=== PATIENT | male | born 1975 | race Native Hawaiian/Other Pacific Islander ===

== ENCOUNTER 2020-10-25 07:34 | Emergency (ER) | payer BC, OTHER ==
[~2020-10-25] VITALS: Ht 180.3 cm; Wt 104.3 kg
[2020-10-25 07:34] VITALS: TEMP 98.9
[2020-10-25 08:09] LABS: PLATELET COUNT 116 K/uL (142-355)
[2020-10-25 08:14] LABS: POTASSIUM 3.7 mmol/L (3.6-5.2); SODIUM 133 mmol/L (136-145)
[2020-10-25 08:27] LABS: PARTIAL THROMBOPLASTIN TIME 27.8 SECONDS (24.5-33.6)
[2020-10-25 10:30] VITALS: BP 120/82
== END 2020-10-25 10:41 | disposition home or self-care (01) ==
LOC: ED 07:34
PROVIDERS: Hospitalist
DX: U07.1 COVID-19 (principal); J12.82 Pneumonia due to coronavirus disease 2019; R09.02 Hypoxemia; B34.9 Viral infection, unspecified; F17.210 Nicotine dependence, cigarettes, uncomplicated
CPT/HCPCS: 36415; 80053; 80320; 82550; 82553; 83880; 84484; 85027; 85610; 85730; 93005; 96360; 99284

== ENCOUNTER 2020-10-26 11:57 | Emergency (ER) | payer BC, OTHER ==
[~2020-10-26] VITALS: Ht 180.3 cm; Wt 104.3 kg
[2020-10-26 12:21] VITALS: TEMP 98.5
[2020-10-26 13:04] LABS: PLATELET COUNT 122 K/uL (142-355)
[2020-10-26 13:09] LABS: POTASSIUM 3.7 mmol/L (3.6-5.2); SODIUM 131 mmol/L (136-145)
[2020-10-26 17:32] VITALS: BP 116/79
== END 2020-10-26 17:34 | disposition home or self-care (01) ==
LOC: ED 11:57
PROVIDERS: Emergency Medicine Emergency Medical Services
DX: U07.1 COVID-19 (principal); J12.82 Pneumonia due to coronavirus disease 2019
CPT/HCPCS: 36600; 80053; 82805; 84484; 85027; 85379; 85610; 86140; 87040; 93005; 96360; 96365; 96366; 96375; 99284; J1100; J1956; J2405; Q9963

== ENCOUNTER 2020-10-27 13:44 | Outpatient (CLI) | payer BC, OTHER | END 2020-10-27 19:14 | disposition home or self-care (01) | LOC: INF 13:44 | PROVIDERS: ATTEND Internal Medicine | DX: Z23 Encounter for immunization (principal); U07.1 COVID-19 ==